=== PATIENT | male | born 1940 | race African-American/Black ===

== ENCOUNTER 2018-05-18 17:30 | Inpatient (IN) | payer OTHER ==
[~2018-05-18] VITALS: Ht 243.8 cm; Wt 5.0 kg
[2018-05-18] MEDS ORDERED: ACYCLOVIR400 MG PO (17:44)
[2018-05-18] MEDS ORDERED: PANTOPRAZOLE SO40 MG PO (17:45)
[2018-05-18] MEDS ORDERED: TENORMIN50 MG PO (17:45)
[2018-05-18] MEDS ORDERED: ATORVASTATIN CA40 MG PO (17:45)
[2018-05-18] MEDS ORDERED: POMALYST4 MG PO (17:45)
[2018-05-18] MEDS ORDERED: ZOFRAN4 MG/5 ML PO (17:46)
[2018-05-18] MEDS ORDERED: PLAVIX75 MG PO (17:46)
[2018-05-18] MEDS ORDERED: ASPIR 8181 MG PO (17:46)
[2018-05-18] MEDS ORDERED: ZANTAC300 MG PO (17:46)
[2018-05-18] MEDS ORDERED: TRIGLIDE160 MG PO (17:46)
== END 2018-05-24 13:55 | disposition home or self-care (01) | DRG 389 ==
LOC: ER 17:30 → SEC-K 23:41 → SURG 05-19 10:43
PROVIDERS: ADMIT Surgery
PROC: BW21ZZZ Computerized Tomography (CT Scan) of Abdomen and Pelvis (ICD-10-PCS; principal; 2018-05-19)
PROC: BW20ZZZ Computerized Tomography (CT Scan) of Abdomen (ICD-10-PCS; 2018-05-22)
DX: K56.690 Other partial intestinal obstruction (principal); C90.00 Multiple myeloma not having achieved remission; I10 Essential (primary) hypertension; I25.10 Atherosclerotic heart disease of native coronary artery without angina pectoris; Z95.5 Presence of coronary angioplasty implant and graft